=== PATIENT | male | born 1980 | race Caucasian/White ===

== ENCOUNTER 2021-05-27 08:51 | Emergency (ER) | payer OTHER, SELFPAY ==
[2021-05-27 09:00] VITALS: BP 133/76; PULSE 64; RESP 18; TEMP 37.7; O2SAT 99
--- NOTE | 2021-05-27 09:53 | ED.SKABFB ---
HPI - Skin/Abscess/Foreign Bdy General Chief complaint: Skin/Abscess/Foreign Body Stated complaint: Possible Poison [place] Time Seen by Provider: 05/27/21 09:41 Source: patient and RN notes reviewed Mode of arrival: ambulatory Limitations: no limitations History of Present Illness HPI narrative: Patient presents today with possible poison jerica rash was noticed yesterday morning to the waist, genitals, upper lip, right upper eyelid, right arm, and right leg. Patient was pulling weeds 2 days ago, and after the rash appeared he went out to his yard again and found the poison jerica. He has been applying topical Benadryl and topical hydrocortisone cream without relief. complaint: rash Related Data Home Medications Medication Instructions Recorded Confirmed albuterol sulfate 2 puff INHALATION QID PRN 05/27/21 05/27/21 Allergies Allergy/AdvReac Type Severity Reaction Status Date / Time No Known Allergies Allergy Verified 05/27/21 09:27 Review of Systems Review of Systems: Narrative: CONSTITUTIONAL: Denies body aches, fever, chills, or sweats. EYES: Denies visual changes, redness, or discharge. ENT: Denies rhinorrhea, congestion, sore throat, or otalgia. CARDIOVASCULAR: Denies chest pain, palpitations, or edema. RESPIRATORY: Denies cough or dyspnea. GASTROINTESTINAL: Denies abdominal pain, nausea, vomiting, or diarrhea. GENITOURINARY: Denies dysuria or hematuria. SKIN: Denies wounds.+ Pruritic rash MUSCULOSKELETAL: Denies back pain, joint pain, or myalgia. NEUROLOGIC: Denies headache, numbness, tingling, or weakness. PSYCH: Denies depression or anxiety. PMFSH Comments At time of signature, I have reviewed and agree with nursing past medical, surgical, social and family history unless otherwise noted. Please see nursing chart for further information. There is no relevant family history pertinent to the presenting complaint Exam Narrative: Exam Narrative: GENERAL: Well-appearing, well-nourished, and in no acute distress. HEAD: Normocephalic, atraumatic. EYES: EOMI. No redness or drainage. Conjunctivae normal. ENT: Mucous membranes pink and moist. Throat normal. Uvula midline. NECK: Normal AROM. CHEST: No respiratory distress. EXTREMITIES: Normal range of motion. No edema. SKIN: Warm, dry. Capillary refill normal. Normal skin turgor. Erythematous maculopapular rash in patches around the waistline, right arm, right lower leg. Scant swelling to the lateral right upper lip. No rash noted to the eyelid. Genital area not examined. NEURO: No focal deficits. Alert and oriented x3. Gait steady. PSYCH: Normal affect. No signs of depression or anxiety. Course Vital Signs Vital signs: Vital Signs Temperature 99.8 F H 05/27/21 09:00 Pulse Rate 64 05/27/21 09:00 Respiratory Rate 18 05/27/21 09:00 Blood Pressure 133/76 05/27/21 09:00 Pulse Oximetry 99 05/27/21 09:00 Temperature 99.8 F H 05/27/21 09:00 Pulse Rate 64 05/27/21 09:00 Respiratory Rate 18 05/27/21 09:00 Blood Pressure 133/76 05/27/21 09:00 Pulse Oximetry 99 05/27/21 09:00 Reviewed. Pt has been instructed to follow up with his PCP regarding his elevated blood pressure today. MDM - Skin/Abscess/Foreign Bdy Differential Diagnosis Differential diagnosis: Likely urticaria, cellulitis, eczema, impetigo and contact dermatitis Critical Care Time Critical Care Time Critical Care Time: No Discharge Plan Discharge Clinical Impression: Poison jerica dermatitis Patient Disposition: Home, Self-Care Condition: Stable Instructions: Poison Jer[place] (ED) Additional Instructions: Please take the prednisone as directed. Take Benadryl for itching. You may also use the topical Benadryl or hydrocortisone as needed. Follow-up with your doctor in 1 week if symptoms are not improving, or sooner if symptoms continue to worsen. Your blood pressure was elevated above 120/80 today at Urgent Care. This puts you above the threshold for f
== END 2021-05-27 10:03 | disposition home or self-care (01) ==
PROVIDERS: Emergency Provider Nurse Practitioner; PCP Internal Medicine
DX: L23.7 Allergic contact dermatitis due to plants, except food (principal); J45.909 Unspecified asthma, uncomplicated
CPT/HCPCS: 99213; G0463